=== PATIENT | male | born 1980 | race Caucasian/White ===

== ENCOUNTER 2019-10-10 07:44 | Outpatient (CLI) | payer OTHER, SELFPAY ==
[2019-10-10 08:27] LABS: Anion Gap 7 mmol/L (8-16); Blood Urea Nitrogen 15 mg/dL (9-20); Calcium 8.4 mg/dL (8.4-10.2); Carbon Dioxide 26 mmol/L (22-30); Chloride 102 mmol/L (98-107); Cholesterol 191 mg/dL (0-200); Estimated Glomerular Filt Rate > 60; Glucose 105 mg/dL (75-110); HDL Direct 43 mg/dL; Potassium 4.3 mmol/L (3.4-5.0); Sodium 135 mmol/L (137-145); Triglycerides 145 mg/dL (<150)
[2019-10-10 08:38] LABS: LDL Cholesterol Direct 118 mg/dL
== END 2019-10-10 07:45 | disposition home or self-care (01) ==
LOC: ANHLAB 07:48
PROVIDERS: PCP Internal Medicine; Visit Provider Internal Medicine
DX: R03.0 Elevated blood-pressure reading, without diagnosis of hypertension (principal); Z13.220 Encounter for screening for lipoid disorders
CPT/HCPCS: 36415; 80048; 80061